=== PATIENT | female | born 1975 | race African-American/Black ===

== ENCOUNTER 2017-03-14 11:02 | Emergency (ER) | payer OTHER ==
[~2017-03-14] VITALS: Ht 162.6 cm; Wt 59.4 kg
[2017-03-14] MEDS ORDERED: PRILOSEC 10MG C10 MG PO (11:11)
[2017-03-14] MEDS ORDERED: KEPPRA 500 MG500 M1 PO (11:11)
[2017-03-14] MEDS ORDERED: PREDNISONE 5 MG5 M1 PO (11:12)
[2017-03-14] MEDS ORDERED: HYDROXYCHLOROQ200 M1 PO (11:12)
[2017-03-14 11:34] LABS: HEMATOCRIT 39.1 % (37.0-47.0); HEMOGLOBIN 13.3 gm/dL (12.0-15.0); MCH 33.7 pg (26.0-34.0); MCV 98.9 fL (80.0-100.0); PLATELET COUNT 183 thou/uL (150-400); RBC 3.95 mil/uL (4.20-5.00); RDW 13.9 % (10.5-14.5); WBC 3.4 thou/uL (4.0-11.0)
[2017-03-14 11:36] LABS: MANUAL DIFF YES
[2017-03-14 11:48] LABS: CALCIUM 9.5 mg/dL (8.5-10.1); CREATININE 0.8 mg/dL (0.6-1.0); POTASSIUM 3.7 mmol/L (3.5-5.1)
[2017-03-14 11:58] LABS: TOTAL BILIRUBIN 0.4 mg/dL (<0.1-1.0); TOTAL PROTEIN 8.3 g/dL (6.4-8.2)
[2017-03-14 12:11] LABS: ABSOLUTE NEUTROPHILS 0.9 thou/uL (1.4-8.2); PLATELET ESTIMATE NORMAL; TOTAL CELL COUNT 100
[2017-03-14 12:46] LABS: URINE BILIRUBIN NEGATIVE (Negative); URINE BLOOD 3+ (Negative); URINE COLOR YELLOW; URINE GLUCOSE-RANDOM* NEGATIVE (Negative); URINE KETONES NEGATIVE (Negative); URINE NITRITE NEGATIVE (Negative); URINE PROTEIN (DIPSTICK) NEGATIVE (Negative); URINE UROBILINOGEN 0.2 E.U./dl (0.2-1.0)
[2017-03-14] MEDS ORDERED: FLOMAX0.4 MG PO (12:50)
[2017-03-14 12:56] LABS: SQUAMOUS 0-3 Few /LPF (0-3); URINE WBC None Seen /HPF (0-5)
[2017-03-14 12:57] LABS: BACTERIA None Seen /HPF (None Seen); CASTS None Seen /LPF (None Seen); CRYSTALS None Seen /LPF (None Seen)
[2017-03-14] MEDS ORDERED: HYDROCODONE-AP1 EAC6 PO (12:57)
[2017-03-14 13:24] VITALS: BP 133/68
== END 2017-03-14 13:26 | disposition home or self-care (01) ==
LOC: ER 11:02
PROVIDERS: Physician Assistant
DX: N20.0 Calculus of kidney (principal); Z90.710 Acquired absence of both cervix and uterus

== ENCOUNTER → 2017-06-16 | Emergency (ER) | payer OTHER ==
[~2017-06-16] VITALS: Ht 162.6 cm; Wt 56.7 kg
[~2017-06-16] MED LIST: FLOMAX0.4 MG PO; HYDROCODONE-AP1 EAC6 PO; HYDROXYCHLOROQ200 M1 PO; KEPPRA 500 MG500 M1 PO; PREDNISONE 5 MG5 M1 PO; PRILOSEC 10MG C10 MG PO
[2017-06-16 08:01] LABS: URINE BILIRUBIN NEGATIVE (Negative); URINE BLOOD 2+ (Negative); URINE COLOR YELLOW; URINE GLUCOSE-RANDOM* NEGATIVE (Negative); URINE KETONES NEGATIVE (Negative); URINE LEUKOCYTES-REFLEX NEGATIVE (Negative); URINE PROTEIN (DIPSTICK) NEGATIVE (Negative); URINE UROBILINOGEN 0.2 E.U./dl (0.2-1.0)
[2017-06-16 09:33] LABS: ABSOLUTE NEUTROPHILS 1.6 thou/uL (1.4-8.2); BASOPHILS 0.9 % (0.0-2.0); EOSINOPHILS 0.8 % (0.0-3.0); HEMATOCRIT 36.1 % (37.0-47.0); HEMOGLOBIN 12.2 gm/dL (12.0-15.0); LYMPHOCYTES 44.2 % (24.0-44.0); MANUAL DIFF NO; MCHC 33.9 g/dL (28.0-37.0); MCV 100.3 fL (80.0-100.0); MONOCYTES 11.2 % (1.0-8.0); PLATELET COUNT 171 thou/uL (150-400); POLYS 42.9 % (36.0-66.0); RBC 3.59 mil/uL (4.20-5.00); RDW 12.8 % (10.5-14.5); WBC 3.7 thou/uL (4.0-11.0)
[2017-06-16 09:39] LABS: CREATININE 0.8 mg/dL (0.6-1.0); POTASSIUM 3.9 mmol/L (3.5-5.1)
[2017-06-16 09:45] LABS: ALBUMIN 4.1 g/dL (3.4-5.0); TOTAL BILIRUBIN 0.5 mg/dL (<0.1-1.0); TOTAL PROTEIN 8.3 g/dL (6.4-8.2)
[2017-06-16 09:47] LABS: CASTS None Seen /LPF (None Seen); CRYSTALS None Seen /LPF (None Seen); SQUAMOUS 4-10 Moderate /LPF (0-3); URINE RBC 3-10 Few /HPF (0-2); URINE WBC-REFLEX 0-5 Rare /HPF (0-5)
[2017-06-16 12:00] VITALS: BP 132/81
== END ==
LOC: ER 07:33
PROVIDERS: Emergency Medicine
DX: N20.1 Calculus of ureter (principal); M32.9 Systemic lupus erythematosus, unspecified; M06.9 Rheumatoid arthritis, unspecified; F10.99 Alcohol use, unspecified with unspecified alcohol-induced disorder; Z90.710 Acquired absence of both cervix and uterus